=== PATIENT | female | born 1960 | race Caucasian/White ===

== ENCOUNTER 2020-12-28 18:46 | Emergency (ER) | payer OTHER, SELFPAY ==
--- NOTE | ~2020-12-28 | XR_ITS ---
EXAMINATION: XR shoulder LT min 2V EXAM DATE: 12/28/2020 19:18 INDICATION: Fell Forward 12/28/20. Upper Arm Pain Since. . Initial encounter. TECHNIQUE: Right shoulder frontal, glenoid, Y projections. There is no prior study for comparison. FINDINGS: There our acute closed posttraumatic fractures of the left humeral neck and greater tubero sity. Mild displacement of the greater tuberosity fracture. No humeral dislocation. Acromioclavicular joint intact. IMPRESSION: 1. Acute left humeral neck, greater tuberosity fractures. Reviewed, dictated and finalized at location A.
[2020-12-28 18:56] VITALS: BP 150/86; PULSE 107; RESP 20; TEMP 36.3; O2SAT 97
--- NOTE | 2020-12-28 19:06 | ED.UPPEXIN ---
HPI - Extremity Injury (Upper) General Chief Complaint: Extremity Injury, Upper <Lynette Keith NP - Last Filed: 12/30/20 08:02> Stated Complaint: Fell may have injury to left Arm <Lynette Keith NP - Last Filed: 12/30/20 08:02> Time Seen by Provider: 12/28/20 19:06 <Lynette Keith NP - Last Filed: 12/30/20 08:02> Source: patient, RN notes reviewed and old records reviewed <Lynette Keith NP - Last Filed: 12/30/20 08:02> Mode of arrival: ambulatory <Lynette Keith NP - Last Filed: 12/30/20 08:02> Limitations: no limitations <Lynette Keith NP - Last Filed: 12/30/20 08:02> History of Present Illness HPI narrative: 60 year female presents to [facility] care with complaints of experiencing fall at her home tonight around 6 pm. She states she tripped and fell inside her home and used her arms to try to catch herself, she is having pain to her left upper arm now. Patient states that she felt a pop at the time of her fall to her left upper arm with extreme pain with any movement of her left arm. Patient has strong pulses to her left upper extremity with brisk capillary refill to her finger nails of her left hand with no tingling or numbness voices to left hand. <Lynette Keith NP - Last Filed: 12/30/20 08:02> MD complaint: injury to: left and arm (upper) <Lynette Keith NP - Last Filed: 12/30/20 08:02> Onset (ago): hour(s) (at 6 pm today) <Lynette Keith NP - Last Filed: 12/30/20 08:02> Other Extremity Injury: Left: arm (upper arm) <Lynette Keith NP - Last Filed: 12/30/20 08:02> Other injuries: none <Lynette Keith NP - Last Filed: 12/30/20 08:02> Handedness: right <Lynette Keith NP - Last Filed: 12/30/20 08:02> Place: home <Lynette Keith NP - Last Filed: 12/30/20 08:02> Severity: severe <Lynette Keith NP - Last Filed: 12/30/20 08:02> Severity scale (1-10): 10 <Lynette Keith NP - Last Filed: 12/30/20 08:02> Exacerbating factors: movement of extremity <Lynette Keith NP - Last Filed: 12/30/20 08:02> Context: fall (tripped an d caught self with hands.) <Lynette Keith NP - Last Filed: 12/30/20 08:02> Associated symptoms: heard/felt popping sensation <Lynette Keith NP - Last Filed: 12/30/20 08:02> Treatments prior to arrival: cold therapy <Lynette Keith NP - Last Filed: 12/30/20 08:02> Related Data Home Medications: Home Medications Medication Instructions Recorded Confirmed atorvastatin 10 mg PO DAILY 12/28/20 12/28/20 esomeprazole magnesium 40 mg PO DAILY 12/28/20 12/28/20 glyburide 10 mg PO DAILY 12/28/20 12/28/20 losartan 100 mg PO DAILY 12/28/20 12/28/20 metformin 1,000 mg PO BID 12/28/20 12/28/20 pioglitazone 15 mg PO DAILY 12/28/20 12/28/20 <Lynette Keith NP - Last Filed: 12/30/20 08:02> Allergies/Adverse Reactions: Allergies Allergy/AdvReac Type Severity Reaction Status Date / Time No Known Allergies Allergy Verified 12/28/20 19:04 <Lynette Keith NP - Last Filed: 12/30/20 08:02> Review of Systems Review of Systems: Narrative: CONSTITUTIONAL: Denies fever, chills, or sweats. EYES: Denies visual changes, redness, or discharge. ENT: Denies rhinorrhea, congestion, sore throat, or otalgia. CARDIOVASCULAR: Denies chest pain, palpitations, or edema. RESPIRATORY: Denies cough or dyspnea. GASTROINTESTINAL: Denies abdominal pain, nausea, vomiting, or diarrhea. GENITOURINARY: Denies dysuria or hematuria. SKIN: Denies rash or itching. MUSCULOSKELETAL: Denies back pain, positive left upper arm pain, or myalgia. NEUROLOGIC: Denies headache, numbness, or weakness. PSYCHIATRIC: Denies anxiety or depression. <Lynette Keith NP - Last Filed: 12/30/20 08:02> All systems reviewed & are unremarkable except as noted in HPI and below <Lynette Keith NP - Last Filed: 12/30/20 08:02> PMFSH Past Medical Histo
[2020-12-28 19:07] VITALS: BP 150/86; PULSE 107; RESP 20; TEMP 36.3; O2SAT 97
== END 2020-12-28 19:59 | disposition home or self-care (01) ==
PROVIDERS: Emergency Provider Registered Nurse; PCP Internal Medicine
DX: S42.292A Other displaced fracture of upper end of left humerus, initial encounter for closed fracture (principal); S42.252A Displaced fracture of greater tuberosity of left humerus, initial encounter for closed fracture; W01.0XXA Fall on same level from slipping, tripping and stumbling without subsequent striking against object, initial encounter; E11.9 Type 2 diabetes mellitus without complications; E78.00 Pure hypercholesterolemia, unspecified; K21.9 Gastro-esophageal reflux disease without esophagitis; I10 Essential (primary) hypertension
CPT/HCPCS: 73030; 99214; G0463

== ENCOUNTER 2021-06-20 09:32 | Emergency (ER) | payer OTHER, SELFPAY ==
[2021-06-20 09:43] VITALS: BP 158/83; PULSE 95; RESP 16; TEMP 36.6; O2SAT 99
--- NOTE | 2021-06-20 10:10 | ED.SKABFB ---
HPI - Skin/Abscess/Foreign Bdy General Chief complaint: Skin/Abscess/Foreign Body Stated complaint: rash on right elbow Time Seen by Provider: 06/20/21 10:11 Source: patient, RN notes reviewed and old records reviewed Mode of arrival: ambulatory Limitations: no limitations History of Present Illness HPI narrative: 61-year-old female who presents to [facility] with complaints of blisters on her right elbow which started yesterday with burning sensation and also voices aching to her elbow for two days prior to blisters noted. Two small areas of red raised rash linear in appearance along blisters no drainage noted. Patient has been keeping area covered with dressing one of the blisters has drained with dry scabbing. Related Data Home Medications Medication Instructions Recorded Confirmed atorvastatin 10 mg PO DAILY 12/28/20 06/20/21 esomeprazole magnesium 40 mg PO DAILY 12/28/20 06/20/21 glyburide 10 mg PO DAILY 12/28/20 06/20/21 losartan 100 mg PO DAILY 12/28/20 06/20/21 metformin 1,000 mg PO BID 12/28/20 06/20/21 Allergies Allergy/AdvReac Type Severity Reaction Status Date / Time No Known Allergies Allergy Verified 06/20/21 10:12 Review of Systems Review of Systems: CONSTITUTIONAL: Denies fever, chills, or sweats. EYES: Denies visual changes, redness, or discharge. ENT: Denies rhinorrhea, congestion, sore throat, or otalgia. CARDIOVASCULAR: Denies chest pain, palpitations, or edema. RESPIRATORY: Denies cough or dyspnea. GASTROINTESTINAL: Denies abdominal pain, nausea, vomiting, or diarrhea. GENITOURINARY: Denies dysuria or hematuria. SKIN linear red raised rash with blisters noted to right elbow MUSCULOSKELETAL: Denies back pain, joint pain, or myalgia. NEUROLOGIC: Denies headache, numbness, or weakness. PSYCHIATRIC: Denies anxiety or depression. All systems reviewed & are unremarkable except as noted in HPI and below PMFSH Past Medical History Medical History (Updated 06/21/21 @ 00:01 by Anthony Ly) Diabetes Elevated cholesterol GERD (gastroesophageal reflux disease) Hypertension Surgical History Surgical History (Updated 12/28/20 @ 19:13 by Lynette Keith NP) No history of previous surgery Social History Social History (Updated 12/28/20 @ 19:13 by Lynette Keith NP) Smoking status: Never smoker Gender identity (if verbalized by the patient): Female Comments At time of signature, agree with nursing past medical, surgical, social and family history. There is no relevant family history pertinent to the presenting complaint Exam Narrative: GENERAL: Well-appearing, well-nourished, and in no acute distress. HEAD: Normocephalic, atraumatic. EYES: PERRLA and EOMI. ENT: Nares clear, no rhinorrhea or epistaxis. Mucous membranes moist. NECK: Supple.no lymphadenopathy CHEST: Clear to auscultation. No respiratory distress. SAO2 99% on room air HEART: Regular rate and rhythm. No murmur heard. Normal peripheral pulses. ABDOMEN: Soft, nontender, nondistended, normal active bowel sounds. EXTREMITIES: Normal range of motion. No edema. SKIN: Warm, dry, small linear areas of red raised rash with blisters to right elbow burning sensation with 2 day history of discomfort to elbow prior to blister formation. NEURO: No focal deficits. Alert and oriented x3. Course Course Level of Care: Express Care Visit Vital Signs Vital signs: Vital Signs Temperature 36.6 C 06/20/21 09:43 Pulse Rate 95 06/20/21 09:43 Respiratory Rate 16 06/20/21 09:43 Blood Pressure 158/83 H 06/20/21 09:43 Pulse Oximetry 99 06/20/21 09:43 Temperature 36.6 C 06/20/21 09:43 Pulse Rate 95 06/20/21 09:43 Respiratory Rate 16 06/20/21 09:43 Blood Pressure 158/83 H 06/20/21 09:43 Pulse Oximetry 99 06/20/21 09:43 MDM - Skin/Abscess/Foreign Bdy Differential Diagnosis Differential diagnosis: Likely abscess of skin or subcutaneous tissue, cellulitis, eczema, contact dermatitis and other (shingle
== END 2021-06-20 10:35 | disposition home or self-care (01) ==
PROVIDERS: Emergency Provider Registered Nurse; PCP Internal Medicine
DX: B02.9 Zoster without complications (principal); E11.9 Type 2 diabetes mellitus without complications; E78.00 Pure hypercholesterolemia, unspecified; K21.9 Gastro-esophageal reflux disease without esophagitis; I10 Essential (primary) hypertension
CPT/HCPCS: 99213; G0463